=== PATIENT | female | born 1970 | race Caucasian/White ===

== ENCOUNTER → 2021-09-23 07:36 | Outpatient (CLI) | payer BC, SELFPAY ==
--- NOTE | ~2021-09-23 | MR_ITS ---
EXAMINATION: MR knee LT wo con DATE: 09/23/2021 08:19 INDICATION: Generalized left knee pain and instability, status post fall x2 weeks TECHNIQUE: Magnetic resonance imaging (MRI) of the left knee was performed without intravenous contra st. Sequences included axial PD-weighted FS FSE, coronal PD-weighted FSE and PD-weighted FS FSE, sagi ttal PD-weighted FSE, and sagittal T2-weighted FS FSE. COMPARISON: None. FINDINGS: Medial compartment: Meniscus intact. Mild diffuse cartilage thinning and osteophytosis. Lateral compartment: Fracture of the anterolateral aspect of the articular surface of the lateral plateau, with 4 mm depre ssion. Meniscus intact. Mild diffuse cartilage thinning and osteophytosis. Patellofemoral compartment: Cartilage and retinacula intact. Ligaments and tendons: Mild abnormal signal superficial and deep to the MCL. Thin layer of abnormal signal deep to the ACL i nsertion. PCL, LCL, and remaining flexor and extensor tendons are intact. Fluid: Large volume knee joint fluid, with fluid fluid levels intrasubstance edema. Small Ibarra's cyst. Osseous/other: Lateral tibial plateau fracture, subjacent acute marrow edema. IMPRESSION: 1. Depressed lateral tibial plateau fracture. 2. Mild partial ACL and MCL tears are suspected. 3. Large hemarthrosis. Reviewed, dictated and finalized at location K.
== END ==
PROVIDERS: PCP Internal Medicine; Visit Provider Orthopaedic Surgery
DX: M25.062 Hemarthrosis, left knee (principal)
CPT/HCPCS: 73721